=== PATIENT | male | born 1975 | race American Indian/Alaskan Native ===

== ENCOUNTER 2019-04-09 10:45 | Emergency (ER) | payer MEDICARE ==
[2019-04-09 11:04] VITALS: BP 123/85; PULSE 74; RESP 20; TEMP 97.3; O2SAT 97
--- NOTE | 2019-04-09 11:11 | C.PDOC ---
History Of Present Illness 44 y/o male presents to the ER complaining of redness to left eye which began when patient woke up in the morning today. Patient states that he began rubbing his eye because he had itching. Patient reports that he noticed eye was red. Denies having any crust, discharge, fever,chills, headache, dizziness, cough, nausea, vomiting, seasonal allergies, and sick contacts. <Elizabeth Paulson - Last Filed: 04/09/19 11:44> <Bala Christian - Last Filed: 04/09/19 11:05> <Elizabeth Paulson - Last Filed: 04/09/19 11:44> Time Seen by Provider: 04/09/19 11:05 Chief Complaint (Nursing): Eye Problem Past Medical History Vital Signs: Last Vital Signs Temp 97.3 F L 04/09/19 10:53 Pulse 74 04/09/19 10:53 Resp 20 04/09/19 10:53 BP 123/85 04/09/19 10:53 Pulse Ox 97 04/09/19 10:53 Primary Care Provider: Bladimir Amado - Social History Hx Alcohol Use: No Hx Substance Use: No - Immunization History Hx Tetanus Toxoid Vaccination: No Hx Influenza Vaccination: Yes Hx Pneumococcal Vaccination: Yes <Bala Christian - Last Filed: 04/09/19 11:05> Vital Signs: Last Vital Signs Temp 97.3 F L 04/09/19 10:53 Pulse 74 04/09/19 10:53 Resp 20 04/09/19 10:53 BP 123/85 04/09/19 10:53 Pulse Ox 97 04/09/19 11:20 <Elizabeth Paulson - Last Filed: 04/09/19 11:44> ED Course And Treatment O2 Sat by Pulse Oximetry: 97 <Bala Christian - Last Filed: 04/09/19 11:05> Disposition Counseled Patient/Family Regarding: Diagnosis, Need For Followup, Rx Given - Disposition Disposition Time: 11:12 <Bala Christian - Last Filed: 04/09/19 11:05> <Elizabeth Paulson - Last Filed: 04/09/19 11:44> - Disposition Referrals: Rolo Dubon [Staff Provider] - Disposition: HOME/ ROUTINE Condition: STABLE Additional Instructions: Start eye drops twice daily to reduce itching and redness start baby shampoo lid scrubs twice a day if crusting develops follow up with ophtho if symptoms persists return to ED if symptoms worsen Prescriptions: Olopatadine 0.1% Opht [Patanol 5 Ml] 1 drop OU BID PRN #1 bottle PRN Reason: Itching / Pruritus Instructions: Conjunctivitis (Noninfectious Pinkeye) (DC) Forms: [employer] ([place]), School Excuse - Clinical Impression Clinical Impression: Red eyes, Allergic conjunctivitis
--- NOTE | 2019-04-09 11:48 | C.PDOC ---
History Of Present Illness 44 y/o male presents to the ER complaining of redness to left eye which began when patient woke up in the morning today. Patient states that he began rubbing his eye because he had itching. Patient reports that he noticed eye was red. Denies having any crust, discharge, fever,chills, headache, dizziness, cough, nausea, vomiting, seasonal allergies, and sick contacts. Time Seen by Provider: 04/09/19 11:05 Chief Complaint (Nursing): Eye Problem History Per: Patient History/Exam Limitations: None Onset/Duration Of Symptoms: Hrs Current Symptoms Are (Timing): Still Present Severity: Moderate Past Medical History Reviewed: Historical Data, Nursing Documentation, Vital Signs Vital Signs: Last Vital Signs Temp 97.3 F L 04/09/19 10:53 Pulse 74 04/09/19 10:53 Resp 20 04/09/19 10:53 BP 123/85 04/09/19 10:53 Pulse Ox 97 04/09/19 10:53 Primary Care Provider: Bladimir Amado - Medical History PMH: No Chronic Diseases Surgical History: No Surg Hx Family History: States: No Known Family Hx - Social History Hx Alcohol Use: No Hx Substance Use: No - Immunization History Hx Tetanus Toxoid Vaccination: No Hx Influenza Vaccination: Yes Hx Pneumococcal Vaccination: Yes Review Of Systems Constitutional: Negative for: Fever, Chills Eyes: Positive for: Redness Respiratory: Negative for: Cough Gastrointestinal: Negative for: Nausea, Vomiting Neurological: Negative for: Headache, Dizziness Physical Exam - Physical Exam Appears: Non-toxic, No Acute Distress Skin: Normal Color, Warm, Dry Head: Atraumatic, Normacephalic Eye(s): bilateral: PERRL, EOMI, Other (injected conjunctiva, OS>OD, no crusting noted on eyelashes, no active drainage) Ear(s): Bilateral: Normal Nose: Other (questionable septal perforation on right side) Oral Mucosa: Moist Tongue: Normal Appearing Lips: Normal Appearing Throat: No Erythema, No Exudate Neck: Normal ROM, Supple Chest: Symmetrical Cardiovascular: Rhythm Regular Respiratory: Normal Breath Sounds, No Wheezing Neurological/Psych: Oriented x3, Normal Speech, Normal Motor, Normal Sensation ED Course And Treatment O2 Sat by Pulse Oximetry: 97 (RA) Pulse Ox Interpretation: Normal Medical Decision Making Medical Decision Making: Based on exam, patient likely has nonallergic conjuctivitis will treat with Patanol for itching baby shampoo scrubs to lids if crusting does present later follow up with pmd patient verbalizes understanding and is stable for discharge Disposition Counseled Patient/Family Regarding: Diagnosis, Need For Followup, Rx Given - Disposition Referrals: Rolo Dubon [Staff Provider] - Disposition: HOME/ ROUTINE Disposition Time: 11:20 Condition: STABLE Additional Instructions: Start eye drops twice daily to reduce itching and redness start baby shampoo lid scrubs twice a day if crusting develops follow up with ophtho if symptoms persists return to ED if symptoms worsen Prescriptions: Olopatadine 0.1% Opht [Patanol 5 Ml] 1 drop OU BID PRN #1 bottle PRN Reason: Itching / Pruritus Instructions: Conjunctivitis (Noninfectious Pinkeye) (DC) Forms: [email or web address] ([place]), School Excuse - Clinical Impression Clinical Impression: Red eyes, Allergic conjunctivitis - PA / QUALITY HEAD / Resident Statement MD/DO has reviewed & agrees with the documentation as recorded. - Scribe Statement The provider has reviewed the documentation as recorded by the Scribe Jacek Jean Provider Attestation All medical record entries made by the Scribe were at my direction and personally dictated by me. I have reviewed the chart and agree that the record accurately reflects my personal performance of the history, physical exam, medical decision making, and the department course for this patient. I have also personally directed, reviewed, and agree with the discharge instructions and disposition.
== END 2019-04-09 11:26 | disposition home or self-care (01) ==
LOC: C.ER 10:45
DX: H10.10 Acute atopic conjunctivitis, unspecified eye (principal); H57.89 Other specified disorders of eye and adnexa